=== PATIENT | female | born 1990 | race Hispanic/Latino ===

== ENCOUNTER 2016-11-27 13:49 | Outpatient (CLI) | payer OTHER ==
[2016-11-27 14:10] VITALS: BP 123/76
== END 2016-11-27 17:07 | disposition home or self-care (01) ==
LOC: TRG 13:49
PROVIDERS: ATTEND Obstetrics & Gynecology
DX: O48.0 Post-term pregnancy (principal); Z3A.40 40 weeks gestation of pregnancy
CPT/HCPCS: 59025

== ENCOUNTER 2016-11-29 15:30 | Inpatient (IN) | payer OTHER ==
[2016-11-29] MEDS ORDERED: ePHEDrine SULFATE IV PRN ×2 (16:01→19:47)
[2016-11-29] MEDS ORDERED: SUBLIMAZE IV PRN (16:01)
[2016-11-29] MEDS ORDERED: MINERAL OIL PO PRN (16:01)
[2016-11-29] MEDS ORDERED: BRETHINE IVP PRN (16:01)
[2016-11-29] MEDS ORDERED: BRETHINE SUB-Q PRN (16:01)
[2016-11-29 16:40] LABS: Hematocrit 40.5 % (30.3-42.9); Hemoglobin 13.7 gm/dl (10.1-14.3); Mean Corpuscular HGB Conc 34 % (30-34); Mean Corpuscular Hemoglobin 33 pg (28-32); Mean Corpuscular Volume 97 fl (79-97); Platelet Count 199 K/mm3 (140-440); Red Blood Count 4.18 M/mm3 (3.65-5.03); Red Cell Distribution Width 13.9 % (13.2-15.2); White Blood Count 21.1 K/mm3 (4.5-11.0)
[2016-11-29] MEDS ORDERED: PITOCin/NS 20 UNIT/1000ML DRIP 20 UNITS/1,000 ML BAG IV SCH (17:00)
[2016-11-29] MEDS: LACTATED RINGERS 1,000 ML IV SCH ×3 (17:00→20:36)
[2016-11-29] MEDS ORDERED: XYLOCAINE 2% INFILTRATI ONE (17:00)
[2016-11-29] MEDS ORDERED: PITOCin/NS 30 UNIT/500ML 30 UNITS/500 ML BAG IV SCH (17:00)
[2016-11-29] MEDS ORDERED: ePHEDrine SULFATE ONE (19:16)
[2016-11-29] MEDS ORDERED: NARCAN 2 MG/2 ML IV PRN (19:47)
--- NOTE | 2016-11-29 19:47 | Anesthesia Consultation ---
Anesthesia Consult and Med Hx Date of service: 11/29/16 - Airway Anesthetic Teeth Evaluation: Good ROM Head & Neck: Adequate Mental/Hyoid Distance: Adequate Mallampati Class: Class II Intubation Access Assessment: Probably Good - Pulmonary Exam CTA: Yes - Cardiac Exam Cardiac Exam: RRR - Pre-Operative Health Status ASA Pre-Surgery Classification: ASA2 Proposed Anesthetic Plan: Epidural - Pulmonary Hx Asthma: No COPD: No Hx Pneumonia: No - Cardiovascular System Hx Hypertension: No - Central Nervous System Hx Seizures: No Hx Psychiatric Problems: No - Endocrine Hx Renal Disease: No Hx End Stage Renal Disease: No Hx Hypothyroidism: No Hx Hyperthyroidism: No - Hematic Hx Anemia: No Hx Sickle Cell Disease: No - Other Systems Hx Alcohol Use: No
[2016-11-29] MEDS ORDERED: fentaNYL-BUPIV 2 MCG/ML-0.125% 200 MCG/100 ML BAG EPIDURAL SCH (20:00)
--- NOTE | 2016-11-29 20:06 | History and Physical Report ---
History of Present Illness Date of examination: 11/29/16 Date of admission: 11/29/16 16:00 Chief complaint: My water broke History of present illness: Patient is a 25 year old G1 who presented to L&D in active labor with spontaneous rupture of membranes. She has an EDC of 11/27/2016. She has had an uncomplicated course. Past History Past Medical History: no pertinent history Past Surgical History: no surgical history Social history: - Obstetrical History Expected Date of Delivery: 11/27/16 Actual Gestation: 40 Week(s) 2 Day(s) : 1 Medications and Allergies Allergies Allergy/AdvReac Type Severity Reaction Status Date / Time No Known Allergies Allergy Unverified 08/27/16 16:25 Home Medications Medication Instructions Recorded Confirmed Last Taken Type Vit-Fe Fumar-FA [ 1 tab PO QDAY 11/28/16 11/28/16 Unknown History Vitamin] Active Meds: Active Medications Fentanyl (Sublimaze) 100 mcg IV Q2H PRN PRN Reason: Labor Pain Last Admin: 11/29/16 16:50 Dose: 100 mcg Lactated Ringer's (Lactated Ringers) 1,000 mls @ 125 mls/hr IV DIRECT CHRISTOFER Last Admin: 11/29/16 19:25 Dose: 125 mls/hr Oxytocin/Sodium Chloride (Pitocin/Ns 20 Unit/1000ml Drip) 20 units in 1,000 mls @ 125 mls/hr IV DIRECT CHRISTOFER Oxytocin/Sodium Chloride (Pitocin/Ns 30 Unit/500ml) 30 units in 500 mls @ 1 mls /hr IV TITR CHRISTOFER; 1 MILLIUNITS/MIN PRN Reason: Protocol Fentanyl/Bupivacaine/Sodium Chlor (Fentanyl-Bupiv 2 Mcg/Ml-0.125%) 200 mcg in 100 mls @ 12 mls/hr EPIDURAL TITR CHRISTOFER PRN Reason: Protocol Mineral Oil (Mineral Oil) 30 ml PO QHS PRN PRN Reason: Constipation Review of Systems All systems: negative Gastrointestinal: abdominal pain Genitourinary: pelvic pain Rectal Exam: deferred - Vital Signs Vital signs: Vital Signs Pulse BP 82 130/76 11/29/16 15:50 11/29/16 15:50 Temp Pulse Resp BP Pulse Ox 98.3 F 98 H 20 120/60 97 11/29/16 19:15 11/29/16 19:59 11/29/16 19:15 11/29/16 19:59 11/29/16 19:58 - Physical Exam Breasts: Cardiovascular: Regular rate, Normal S1, Normal S2 Lungs: Positive: Clear to auscultation, Normal air movement Abdomen: Positive: normal appearance, soft, normal bowel sounds. Negative: distention, tenderness Vulva: both: normal Vagina: Positive: normal moisture. Negative: discharge Cervix: Negative: lesion, discharge Uterus: Positive: normal size, normal contour Adnexa: both: normal Anus/Rectum: Positive: normal perianal skin, heme negative. Negative: rectal mass, hemorrhoids Extremities: Deep Tendon Reflex Grade: Normal +2 - Obstetrical FHR: auscultation normal Uterine Contraction Monitor Mode: External Cervical Dilatation: 5 Cervical Effacement Percentage: 100 station: -2 Uterine Contraction Pattern: Regular Uterine Contraction Intensity: Moderate Results Result Diagrams: 11/29/16 16:10 Abnormal lab results 11/29/16 Range/Units 16:10 WBC 21.1 H (4.5-11.0) K/mm3 MCH 33 H (28-32) pg All other labs normal. Assessment and Plan IUP at 40.2 weeks in active labor. Admit to L&D. Patient may have epidural when desired. Anticpate .
--- NOTE | 2016-11-30 00:54 | Procedure Note ---
OB Delivery Note - Delivery Date of Delivery: 11/30/16 Surgeon: ALEX SWEENEY Estimated blood loss: 200cc - Vaginal Delivery presentation: vertex Delivery position: OA Intrapartum events: meconium, prolonged 2nd stage>2.5hr Delivery induction: none Delivery augmentation: pitocin Delivery monitor: external FHT, external uterine Route of delivery: vacuum extraction Indicators for instrumentation: maternal exhaustion Delivery placenta: spontaneous Delivery cord: 3 umbilical vessels Episiotomy: midline Delivery laceration: 3rd degree Delivery repair: vicryl, chromic Anesthesia: epidural Delivery comments: Viable male delivered with vaccuum assistance over midline episiotomy due to maternal exhaustion after pushing 3 hours due to asyncliticism. No nuchal. Infant handed to waiting NICU team after cord clamped and cut. Placenta delivered spontaneously and intact with 3vc. Lacerations repaired without difficulty for excellent hemostasis. Patient tolerated procedure well. - Infant A at 1 minute: 5 at 5 minutes: 7 (10 minute was 9.) Infant Gender: Male (8 pounds 5 ounces)
[2016-11-30] MEDS ORDERED: SODIUM CHLORIDE FLUSH SYRINGE 10 ML IV NR (02:24)
[2016-11-30] MEDS ORDERED: LANSINOH TP PRN (02:24)
[2016-11-30] MEDS ORDERED: BENADRYL PO PRN (02:24)
[2016-11-30] MEDS ORDERED: NORCO 5/325 PO PRN (02:24)
[2016-11-30] MEDS ORDERED: MILK OF MAGNESIA PO PRN (02:24)
[2016-11-30] MEDS ORDERED: PHENERGAN PO PRN (02:24)
[2016-11-30] MEDS ORDERED: ZOFRAN IV PRN (02:24)
[2016-11-30] MEDS ORDERED: DULCOLAX PR PRN (02:24)
[2016-11-30] MEDS ORDERED: DERMOPLAST TP PRN (02:24)
[2016-11-30] MEDS ORDERED: TYLENOL PO PRN (02:24)
[2016-11-30] MEDS ORDERED: TUCKS PAD TP PRN (02:24)
[2016-11-30] MEDS: MOTRIN PO SCH ×3 (05:42→18:12)
[2016-11-30] MEDS: COLACE PO SCH (09:49)
[2016-11-30] MEDS: PRENATAL VITAMIN PO SCH (09:49)
[2016-11-30 14:00] LABS: Hematocrit 39.3 % (30.3-42.9)
[2016-12-01] MEDS: MOTRIN PO SCH ×3 (00:01→12:40)
[2016-12-01] MEDS: COLACE PO SCH ×2 (00:02→12:42)
--- NOTE | 2016-12-01 11:29 | Progress Note ---
Assessment and Plan PPD 1 s/p vavd. Doing well. Plan for discharge on today. Subjective - Subjective Date of service: 12/01/16 Interval history: Patient is a 25 year old G1 who presented to L&D in active labor with spontaneous rupture of membranes. She has an EDC of 11/27/2016. She has had an uncomplicated course. Patient reports: appetite normal, voiding normally, pain well controlled, ambulating normally : doing well Objective - Vital Signs Latest vital signs: Vital Signs Temp Pulse Resp BP 12/01/16 08:00 97.4 F L 65 20 110/51 12/01/16 05:41 18 12/01/16 00:01 18 12/01/16 00:00 98.5 F 78 18 112/58 11/30/16 17:30 98.3 F 88 20 126/71 11/30/16 13:30 98.7 F 80 18 115/68 Intake and Output 11/30/16 12/01/16 12/01/16 22:59 06:59 14:59 Intake Total 480 360 Balance 480 360 Intake: Oral 240 Intake, Free Water 240 360 Other: Total, Intake Amount 240 # Voids Void 1 1 - Exam Breasts: Present: deferred Cardiovascular: Present: Regular rate, Normal S1, Normal S2 Lungs: Present: Clear to auscultation, Normal air movement Abdomen: Present: normal appearance, soft Extremities: Present: normal Incision: Present: normal, dry, intact
--- NOTE | 2016-12-01 11:30 | Discharge Summary ---
Providers - Providers Date of Admission: 11/29/16 16:00 Date of discharge: 12/01/16 Attending physician: ALEX SWEENEY Primary care physician: ALEX SWEENEY Hospitalization Reason for admission: active labor Delivery: Other procedures: none Disposition: STILL A PATIENT Plan - Provider Discharge Summary Activity: routine, no sex for 6 weeks, no heavy lifting 4 weeks, no strenuous exercise Diet: routine Instructions: routine Additional instructions: [] Smoking cessation referral if applicable(refer to patient education folder for contact #) [] Refer to [facility]'s [facility] Booklet Call your doctor immediately for: * Fever > 100.5 * Heavy vaginal bleeding ( >1 pad per hour) * Severe persistent headache * Shortness of breath * Reddened, hot, painful area to leg or breast * Drainage or odor from incision. * Keep incision clean and dry at all times and follow doctor's instructions regarding bathing/showering - Follow up plan Follow up: ALEX SWEENEY MD [Primary Care Provider] - 6 Weeks
[2016-12-01] MEDS: PRENATAL VITAMIN PO SCH (12:43)
[2016-12-01 14:25] VITALS: BP 119/61
== END 2016-12-01 13:30 | disposition home or self-care (01) | DRG 775 ==
LOC: TRG 15:30 → LD 16:00 → OB 11-30 02:03
PROVIDERS: ADMIT Obstetrics & Gynecology; ATTEND Obstetrics & Gynecology
PROC: 3E0S3CZ (ICD-10-PCS; principal; 2016-11-30)
PROC: 0W8NXZZ Division of Female Perineum, External Approach (ICD-10-PCS; 2016-11-30)
PROC: 10D07Z6 Extraction of Products of Conception, Vacuum, Via Natural or Artificial Opening (ICD-10-PCS; 2016-11-30)
PROC: 00HU33Z Insertion of Infusion Device into Spinal Canal, Percutaneous Approach (ICD-10-PCS; 2016-11-30)
DX: O63.1 Prolonged second stage (of labor) (principal); O42.02 Full-term premature rupture of membranes, onset of labor within 24 hours of rupture; O77.0 Labor and delivery complicated by meconium in amniotic fluid; Z3A.40 40 weeks gestation of pregnancy; Z37.0 Single live birth; O70.20 Third degree perineal laceration during delivery, unspecified
CPT/HCPCS: 36415; 85014; 85018; 85027; 86850; 86900; 86901; 99211; G0463; J2590; J3010; J7120